=== PATIENT | female | born 2000 | race Caucasian/White ===

== ENCOUNTER 2021-02-17 04:07 | Inpatient (IN) ==
[2021-02-17] MEDS ORDERED: *HR* Dextrose 50 % in Water (Syg) 50 ML SYRINGE ONE (10:21)
[2021-02-17] MEDS ORDERED: *HR* Dextrose 50 % in Water (Syg) 50 ML SYRINGE IVP ONE (11:23)
[2021-02-17] MEDS ORDERED: Ringers Solution, Lactated 1,000 ML IVC SCH (13:00)
[2021-02-17 19:15] LABS: BUN/Creatinine Ratio 7 (6-26); Blood Urea Nitrogen 4 mg/dL (6-20); Calcium 8.3 mg/dL (8.6-10.3); Carbon Dioxide 15 mEq/L (23-29); Chloride 110 mEq/L (98-107); Glucose 71 mg/dL (70-105); Osmolality,Calculated 285 (280-300); Potassium 3.4 mEq/L (3.5-5.1); Sodium 140 mEq/L (136-145); eGFR For African Americans > 60; eGFR For Non-African Americans > 60
[2021-02-17] MEDS: Thiamine (B-1) 100 MG in 0.9 % Sodium Chloride 50 ML IVPB SCH (21:09)
[2021-02-17] MEDS: Ringers Solution, Lactated 1,000 ML IVC SCH (21:10)
[2021-02-18] MEDS ORDERED: Acetaminophen IV 1,000 MG/100 ML BAG IVPB ONE (01:00)
[2021-02-18] MEDS: Ringers Solution, Lactated 1,000 ML IVC SCH (05:39)
[2021-02-18 08:02] LABS: Hematocrit 36.7 % (35.3-44.9); Hemoglobin 12.4 g/dL (11.5-15.4); Mean Corpuscular HGB Conc 33.8 g/dL (31.6-35.5); Mean Corpuscular Volume 91.8 fL (83.0-100.0); Mean Platelet Volume 9.4 fL (9.4-12.4); Platelet Count 270 K/mcL (140-400); Red Cell Distribution Width 12.5 % (11.5-14.5); White Blood Count 6.5 K/mcL (4.3-11.1)
[2021-02-18 08:09] LABS: INR 1.1; Prothrombin Time 12.7 Seconds (9.4-12.1)
[2021-02-18 08:19] VITALS: BP 108/70; PULSE 75; TEMP 98.3; O2SAT 98
[2021-02-18 08:20] LABS: BUN/Creatinine Ratio 9 (6-26); Blood Urea Nitrogen 5 mg/dL (6-20); Calcium 8.4 mg/dL (8.6-10.3); Carbon Dioxide 23 mEq/L (23-29); Chloride 107 mEq/L (98-107); Glucose 84 mg/dL (70-105); Magnesium 1.6 mg/dL (1.6-2.6); Osmolality,Calculated 280 (280-300); Potassium 3.3 mEq/L (3.5-5.1); Sodium 137 mEq/L (136-145); eGFR For African Americans > 60; eGFR For Non-African Americans > 60
[2021-02-18] MEDS: Thiamine (B-1) 100 MG in 0.9 % Sodium Chloride 50 ML IVPB SCH (10:02)
[2021-02-18] MEDS ORDERED: Thiamine (B-1) 100 MG, Folic Acid 1 MG, MVI, adult with vitamin K 10 ML in 0.9 % Sodi... IVPB SCH (18:00)
== END 2021-02-18 12:21 | disposition home or self-care (01) | DRG 775 ==
LOC: 1ANU 09:47 → ICNU 10:07 → SUATTDRO 10:07 → 3ANU 23:40
PROVIDERS: ADMIT Family Medicine; ATTEND Student in an Organized Health Care Education/Training Program